=== PATIENT | female | born 1985 | race African-American/Black ===

== ENCOUNTER 2016-10-30 13:36 | Emergency (ER) ==
--- NOTE | 2016-10-30 14:51 | PROVIDER DOCUMENTATION ---
HPI-Musculoskeletal Pain/Inj <Bairon Hernandez - Last Filed: 10/30/16 15:55> - GENERAL Source: patient - HX OF PRESENT ILLNESS-MUSKULOSKELTAL Quality of Pain: reports: aching Severity in ED: mild Onset/Duration: other ([id number]) Timing: still present Any recent injury?: No Locality of Occurance: Home Similar Symptoms Previously?: No Recently seen or treated by another doctor?: No <Anne-Marie Joseph - Last Filed: 10/30/16 16:04> - GENERAL Chief Complaint: Toothache Stated Complaint: TOOTHACHE Time Seen by Provider: 10/30/16 14:41 - HX OF PRESENT ILLNESS-MUSKULOSKELTAL Nature of Presenting Problem: pt is a 30 y/o f present to the Er with complaints of tooth pain. pt is in no apparent distress. pt states tooth pain started [id number] off and on. pt states she cam in today because its swollen and it hurts. pt denies n,v,d. pt states she has not been to the dentist. pt denies any major medical problems and taking and medications on a regular basis (Anne-Marie Joseph) Review of Systems - Adult - REVIEW OF SYSTEMS - ADULT Constitutional: reports: no symptoms reported Eyes: reports: no symptoms reported Ears, Nose, Mouth & Throat: reports: mouth/dental pain, mouth swelling. denies : hearing loss, epistaxis, sinus problem Cardiovascular: denies: chest pain, edema, heart murmur Respiratory: denies: chronic cough, cough, dyspnea on exertion Gastrointestinal: reports: no symptoms reported Genitourinary: reports: no symptoms reported Musculoskeletal: reports: no symptoms reported Integumentary: reports: no symptoms reported Neurological: reports: no symptoms reported Psychiatric: reports: no symptoms reported Endocrine: reports: no symptoms reported Hematologic/Lymphatic: reports: no symptoms reported Allergic/Immunologic: reports: no symptoms reported All Other Systems: Reviewed and Negative <Anne-Marie Joseph - Last Filed: 10/30/16 16:04> Past History - Adult - PAST MEDICAL HISTORY-ADULT Review of Records: reports: Nursing Assessment Review - IMMUNIZATION STATUS Childhood Immunizations: See Nurse Assessment Flu Vaccine: See Nurse Assessment - SOCIAL HISTORY Smoking: cigarettes, less than 1 pack/day Provider spent 3-5 mins advising pt. on dangers of tobacco.: Discussed manners to quit use, and f/u contacts for add'l counseling. Substance Use: none/never <Anne-Marie Joseph - Last Filed: 10/30/16 16:04> Physical Exam-Injury Related - Physical Exam-Injury Related Initial Vital Signs Reviewed: Yes General Appearance: appears well, alert, no apparent distress Eyes: PERRL/EOMI, pink conjunctivae Head, Ears, Nose, Mouth & Throat: moist mucous membranes, other (negative trismus, able to manage oral secretions, able to manage swallowing, soft floor of mouth, no swelling.) Neck: non-tender, full range of motion Respiratory: chest non-tender, lungs clear, normal breath sounds, no pleuratic chest pain, no respiratory distress, no accessory muscle use Cardiovascular: normal peripheral pulses, regular rate, rhythm Lymphatic: no adenopathy Extremity: normal range of motion, non-tender, normal gait, normal inspection, no pedal edema, no calf tenderness, normal capillary refill Integumentary: normal color, warm/dry Neurologic: grossly normal, no motor/sensory deficits Psych/Mental Status: normal mood/affect, normal thought content, normal thought process, oriented x 3 - Glascow Coma Score Best Eye Response (Darcy): (4) open spontaneously Best Verbal Response (Darcy): (5) oriented Best Motor Response (Darcy): (6) obeys commands [place] Total: 15 <Anne-Marie Joseph - Last Filed: 10/30/16 16:04> Progress <Bairon Hernandez - Last Filed: 10/30/16 15:55> <Anne-Marie Joseph - Last Filed: 10/30/16 16:04> - PLAN OF CARE/RESULTS Progress/Plan/Lab Results: Vital Signs - 24 hr 10/30/16 13:49 Temperature 98.5 F Pulse Rate 90 Respiratory 18 Rate Blood Pressure 112/60 O2 Sat by Pulse 100 Oximetry Orders Category Date Time Status Hydrocodone/APAP 10 mg/325 mg [Beecher-10] Med 10/30/16 15:54 Discontinued 1 each PO NOW ONE Vital Signs - 24 hr 10/30/16 13:49 Temperature 98.5 F Pulse Rate 90 Respiratory 18 Rate Blood Pressure 112/60 O2 Sat by Pulse 100 Oximetry (Anne-Marie Joseph) Departure - Departure Time of Disposition Order: 15:55 Certified Medical Emergency: Emergent <Bairon Hernandez - Last Filed: 10/30/16 15:55> <Anne-Marie Joseph - Last Filed: 10/30/16 16:04> - Departure DIAGNOSIS: Pain, dental Disposition: HOME 01 Condition: Stable Additional Instructions: FOLLOW UP WITH DENTIST SOON POSSIBLE. ED Follow Up Instructions: You have been treated by a care provider in the Emergency Department. These instructions are being provided to you so you can have an understanding of how to care for yourself upon discharge. Upon discharge from the Emergency Department, you are responsible for making arrangements for follow-up care by a physician of your choice. Take all prescribed medications as directed. Return to the Emergency Department immediately for any new or worsening symptoms. You may call the Physician Referral phone number at [phone] to obtain a list of Physicians who are taking new patients. Prescriptions: Ibuprofen [Motrin] 800 mg PO Q8H PRN PRN #20 tablet PRN Reason: inflammation Penicillin V Potassium 500 mg PO BID #20 tablet Omeprazole [Prilosec] 20 mg PO DAILY@0700 #20 capsule Referrals: None,PCP [Primary Care Provider] - Attestation - Physician/ MAVIS Attestation Patient care was provided by Advanced Practice Provider:: Yes Advanced Practice Provider:: Bairon Hernandez Advanced Practice Provider documentation review:: The Mid-level provider documentation, treatment plan and medical decision making was reviewed by the physician who agrees with all treatment and medical decision making by the [facility]. <Bairon Hernandez - Last Filed: 10/30/16 15:55> - Scribe Verification/Attestation Scribe:: Anne-Marie Joseph Acting as Scribe for:: Bairon Hernandez Scribe documention review:: This chart was documented by a scribe and accurately reflects the service the provider performed and the decisions made by the provider. <Anne-Marie Joseph - Last Filed: 10/30/16 16:04> Physician Attestation
[2016-10-30] MEDS ORDERED: NORCO-10 PO ONE (15:54)
[2016-10-30 16:15] VITALS: BP 106/73
== END 2016-10-30 16:13 | disposition home or self-care (01) ==
LOC: ED 13:36
DX: K08.89 Other specified disorders of teeth and supporting structures (principal); R22.0 Localized swelling, mass and lump, head; F17.210 Nicotine dependence, cigarettes, uncomplicated; Z71.6 Tobacco abuse counseling